=== PATIENT | male | born 1995 | race Caucasian/White ===

== ENCOUNTER 2016-11-30 21:47 | Emergency (ER) | payer MEDICAID ==
[~2016-11-30] VITALS: Ht 172.7 cm; Wt 77.3 kg
[2016-11-30 21:47] VITALS: TEMP 98.9
[~2016-11-30 21:47] MED LIST: ATIVAN 1MG T1 MG/TAB PO; LANTUS100 U/ML SC; NOVOLOG 100U100 U/M1 SQ
[2016-11-30 22:35] LABS: BASO # 0.1 (0.0-0.2); BASO % 0.6 % (0.0-2.0); EOS # 0.1 (0.0-0.7); EOS % 1.2 % (0-4.0); GRAN # 5.1 (1.4-6.5); GRAN % 60.5 % (42.2-75.2); HEMATOCRIT 46.6 % (36.0-47.0); HEMOGLOBIN 16.1 g/dl (12.5-16.1); LYMPH # 2.1 (1.2-3.4); LYMPH % 24.7 % (20.0-51.0); MEAN CELL VOLUME 84 fl (80.0-95.0); MEAN CORPUSCULAR HEMOGLOBIN 29 pg (26.0-32.0); MEAN CORPUSCULAR HGB CONC 35 g/dl (33.0-37.0); MEAN PLATELET VOLUME 10.5 fl (7.4-10.4); MONO % 12.3 % (1.7-9.3); PLATELET COUNT 212 K/mm3 (130-400); RED BLOOD COUNT 5.53 M/mm3 (4.20-5.60); REDCELL DISTRIBUTION WIDTH-CV 12.1 % (11.5-14.5); WHITE BLOOD COUNT 8.4 K/mm3 (4.8-10.8)
[2016-11-30 22:37] LABS: CALCIUM 9.3 mg/dL (8.4-10.2); CREATININE, serum 0.54 mg/dL (0.66-1.25); POTASSIUM 4.1 mmol/L (3.4-5.0)
[2016-11-30] MEDS ORDERED: PEN-VEE K500 MG PO (23:25)
[2016-11-30] MEDS ORDERED: NORCO 325 MG-51 TAB PO (23:25)
[2016-12-01 00:44] VITALS: BP 116/87; PULSE 93
== END 2016-12-01 00:49 | disposition home or self-care (01) ==
LOC: COL.ER 21:47
PROVIDERS: Emergency Medicine
DX: K02.9 Dental caries, unspecified (principal); E10.9 Type 1 diabetes mellitus without complications; F17.210 Nicotine dependence, cigarettes, uncomplicated
CPT/HCPCS: J1170; J1815; J7030; Q9967

== ENCOUNTER 2017-05-22 21:36 | Emergency (ER) | payer OTHER, MEDICAID ==
[~2017-05-22] VITALS: Ht 175.3 cm; Wt 72.7 kg
[~2017-05-22 21:36] MED LIST changes: +NORCO 325 MG-51 TAB PO; +PEN-VEE K500 MG PO; +SEROQUEL 200MG200 MG PO
[2017-05-22 21:44] VITALS: TEMP 98.6
[2017-05-22 22:30] LABS: COLLECTION METHOD CLEAN CATCH
[2017-05-22 22:45] LABS: TRICYCLIC ANTIDEPRESS URINE NEGATIVE
[2017-05-22 22:46] LABS: HEMATOCRIT 42.1 % (36.0-47.0); HEMOGLOBIN 15.1 g/dl (12.5-16.1); MEAN CELL VOLUME 82 fl (80.0-95.0); MEAN CORPUSCULAR HEMOGLOBIN 29 pg (26.0-32.0); MEAN CORPUSCULAR HGB CONC 36 g/dl (33.0-37.0); MEAN PLATELET VOLUME 10.9 fl (7.4-10.4); PLATELET COUNT 200 K/mm3 (130-400); RED BLOOD COUNT 5.14 M/mm3 (4.20-5.60); REDCELL DISTRIBUTION WIDTH-CV 11.6 % (11.5-14.5)
[2017-05-22 22:52] LABS: ACETONE,SERUM NEGATIVE
[2017-05-22 22:56] LABS: ALANINE AMINOTRANSFERASE 35 U/L (21-72); ALBUMIN 4.3 gm/dL (3.5-5.0); ALKALINE PHOSPHATASE 163 U/L (50-136); ANION GAP 12 mmol/L (7-16); AST,SGOT 13 U/L (15-37); BILIRUBIN,TOTAL 0.4 mg/dL (0.0-1.0); BLOOD UREA NITROGEN 12 mg/dL (9-20); CALCIUM 9.6 mg/dL (8.4-10.2); CARBON DIOXIDE 25 mmol/L (22-30); CHLORIDE 101 mmol/L (98-107); CREATININE, serum 0.52 mg/dL (0.66-1.25); GLUCOSE 361 mg/dL (74-106); POTASSIUM 3.9 mmol/L (3.4-5.0); SODIUM 137 mmol/L (137-145); TOTAL PROTEIN 7.3 gm/dL (6.4-8.2)
[2017-05-22 22:57] LABS: ACETAMINOPHEN < 10 ug/mL (10-30); ALCOHOL(ethanol),MEDICAL < 10 mg/dL; SALICYLATE < 1.0 mg/dL
[2017-05-22 22:59] LABS: BASOPHIL 3 % (0-2); EOSINOPHIL 4 % (0-4); LYMPHOCYTE 41 % (20.0-51.0); NEUTROPHILS 50 % (42.0-75.2); ROULEAUX 2+
[2017-05-22 23:00] LABS: POIKILOCYTOSIS 1+
[2017-05-22 23:05] LABS: PH 5 (5-8); URINE APPEARANCE Clear; URINE BILIRUBIN Negative (NEGATIVE); URINE BLOOD Negative (NEGATIVE); URINE COLOR Straw; URINE GLUCOSE 3+ (NEGATIVE); URINE KETONE Trace (NEGATIVE); URINE LEUKOCYTE ESTERASE Negative (NEGATIVE); URINE NITRATE Negative (NEGATIVE); URINE PROTEIN(semi-quant) Negative (NEGATIVE); URINE UROBILINOGEN Negative (NEGATIVE)
[2017-05-22 23:06] LABS: AMORPHOUS CRYSTAL Present /uL; SQUAMOUS EPITHELIAL 0-2 /hpf; URINE BACTERIA Rare /hpf
[2017-05-23 09:24] VITALS: BP 90/47; PULSE 66
== END 2017-05-23 10:35 ==
LOC: COL.ER 21:36
PROVIDERS: Emergency Medicine
DX: R45.851 Suicidal ideations (principal); E10.9 Type 1 diabetes mellitus without complications; F39 Unspecified mood [affective] disorder; F12.90 Cannabis use, unspecified, uncomplicated
CPT/HCPCS: J1815; J7030

== ENCOUNTER 2017-06-24 17:45 | Emergency (ER) | payer OTHER, MEDICAID ==
[~2017-06-24] VITALS: Ht 172.7 cm; Wt 81.8 kg
[~2017-06-24 17:45] MED LIST changes: +COGENTIN 1MG1 MG/TAB PO; +GEODON60 MG PO; +HALDOL 1MG T1 MG/TAB PO
[2017-06-24 18:28] LABS: BASO % 0.5 % (0.0-2.0); EOS # 0.2 (0.0-0.7); GRAN # 3.6 (1.4-6.5); HEMOGLOBIN 15.7 g/dl (12.5-16.1); LYMPH # 3.7 (1.2-3.4); LYMPH % 45.6 % (20.0-51.0); MEAN CELL VOLUME 84 fl (80.0-95.0); MEAN CORPUSCULAR HEMOGLOBIN 29 pg (26.0-32.0); MEAN CORPUSCULAR HGB CONC 35 g/dl (33.0-37.0); MEAN PLATELET VOLUME 10.1 fl (7.4-10.4); MONO # 0.5 (0.1-0.6); MONO % 5.9 % (1.7-9.3); PLATELET COUNT 218 K/mm3 (130-400); RED BLOOD COUNT 5.39 M/mm3 (4.20-5.60); REDCELL DISTRIBUTION WIDTH-CV 12.6 % (11.5-14.5)
[2017-06-24 18:35] LABS: ACETONE,SERUM NEGATIVE
[2017-06-24 18:37] LABS: ACETAMINOPHEN < 10 ug/mL (10-30); ALANINE AMINOTRANSFERASE 44 U/L (21-72); ALBUMIN 4.6 gm/dL (3.5-5.0); ALCOHOL(ethanol),MEDICAL < 10 mg/dL; ALKALINE PHOSPHATASE 83 U/L (50-136); ANION GAP 14 mmol/L (7-16); AST,SGOT 18 U/L (15-37); BILIRUBIN,TOTAL 0.6 mg/dL (0.0-1.0); BLOOD UREA NITROGEN 15 mg/dL (9-20); CALCIUM 9.6 mg/dL (8.4-10.2); CARBON DIOXIDE 26 mmol/L (22-30); CHLORIDE 102 mmol/L (98-107); CREATININE, serum 0.47 mg/dL (0.66-1.25); GLUCOSE 358 mg/dL (74-106); LIPASE 66 U/L (23-300); POTASSIUM 3.6 mmol/L (3.4-5.0); SALICYLATE < 1.0 mg/dL; SODIUM 142 mmol/L (137-145); TOTAL PROTEIN 7.7 gm/dL (6.4-8.2)
[2017-06-24 18:39] LABS: ARTERIAL BLD GAS O2 SATURATION 96.9 % (92-100); ARTERIAL BLD GAS TCO2 CT 27.4; ARTERIAL BLOOD GAS HCO3 26.1 meq/L (22-26); ARTERIAL BLOOD GAS PO2 91.3 mmHg (80-100)
[2017-06-24 19:31] LABS: COLLECTION METHOD CLEAN CATCH
[2017-06-24 19:42] LABS: MUCOUS Present /lpf; PH 6 (5-8); SQUAMOUS EPITHELIAL None Seen /hpf; URINE APPEARANCE Clear; URINE BACTERIA None Seen /hpf; URINE BILIRUBIN Negative (NEGATIVE); URINE BLOOD Negative (NEGATIVE); URINE COLOR Straw; URINE GLUCOSE 3+ (NEGATIVE); URINE KETONE Trace (NEGATIVE); URINE LEUKOCYTE ESTERASE Negative (NEGATIVE); URINE NITRATE Negative (NEGATIVE); URINE PROTEIN(semi-quant) Negative (NEGATIVE); URINE RBC None Seen /hpf; URINE UROBILINOGEN Negative (NEGATIVE)
[2017-06-24 19:52] LABS: TRICYCLIC ANTIDEPRESS URINE NEGATIVE
[2017-06-24] MEDS ORDERED: NEURONTIN100 MG/CAP PO (21:09)
[2017-06-24] MEDS ORDERED: TRILEPTAL 300M300 MG PO (21:09)
[2017-06-24] MEDS ORDERED: GEODON80 MG PO (21:10)
[2017-06-24] MEDS ORDERED: REMERON30 MG PO (21:11)
[2017-06-24] MEDS ORDERED: NOVOLOG 100U100 U/M1 SQ (21:12)
[2017-06-24] MEDS ORDERED: LANTUS100 U/ML SQ (21:12)
[2017-06-25 04:22] VITALS: TEMP 98.8
[2017-06-25 11:18] VITALS: BP 123/86; PULSE 105
== END 2017-06-25 11:21 | disposition home or self-care (01) ==
LOC: COL.ER 17:45
PROVIDERS: Emergency Medicine
DX: T42.1X1A Poisoning by iminostilbenes, accidental (unintentional), initial encounter (principal); E11.9 Type 2 diabetes mellitus without complications; R41.82 Altered mental status, unspecified; R11.10 Vomiting, unspecified; F20.9 Schizophrenia, unspecified; Z79.4 Long term (current) use of insulin
CPT/HCPCS: J1815; J2405; J2765; J7030; J7040

== ENCOUNTER 2017-06-25 16:01 | Emergency (ER) | payer OTHER, MEDICAID ==
[~2017-06-25] VITALS: Ht 172.7 cm; Wt 77.3 kg
[~2017-06-25 16:01] MED LIST changes: +GEODON80 MG PO; +LANTUS100 U/ML SQ; +NEURONTIN100 MG/CAP PO; +REMERON30 MG PO; +TRILEPTAL 300M300 MG PO
[2017-06-25 16:28] VITALS: TEMP 97.7
[2017-06-25 18:03] LABS: BASO % 0.5 % (0.0-2.0); EOS # 0.2 (0.0-0.7); EOS % 1.9 % (0-4.0); GRAN # 4.7 (1.4-6.5); GRAN % 53.1 % (42.2-75.2); HEMATOCRIT 42.5 % (36.0-47.0); HEMOGLOBIN 14.7 g/dl (12.5-16.1); LYMPH # 3.4 (1.2-3.4); MEAN CELL VOLUME 84 fl (80.0-95.0); MEAN CORPUSCULAR HEMOGLOBIN 29 pg (26.0-32.0); MEAN CORPUSCULAR HGB CONC 35 g/dl (33.0-37.0); MEAN PLATELET VOLUME 10.3 fl (7.4-10.4); MONO # 0.5 (0.1-0.6); PLATELET COUNT 257 K/mm3 (130-400); RED BLOOD COUNT 5.05 M/mm3 (4.20-5.60); REDCELL DISTRIBUTION WIDTH-CV 12.4 % (11.5-14.5)
[2017-06-25 18:21] LABS: ALANINE AMINOTRANSFERASE 43 U/L (21-72); ALBUMIN 4.5 gm/dL (3.5-5.0); ALKALINE PHOSPHATASE 71 U/L (50-136); ANION GAP 17 mmol/L (7-16); AST,SGOT 19 U/L (15-37); BILIRUBIN,TOTAL 0.4 mg/dL (0.0-1.0); BLOOD UREA NITROGEN 17 mg/dL (9-20); CALCIUM 9.1 mg/dL (8.4-10.2); CARBON DIOXIDE 22 mmol/L (22-30); CHLORIDE 101 mmol/L (98-107); CREATININE, serum 0.74 mg/dL (0.66-1.25); GLUCOSE 359 mg/dL (74-106); LIPASE 85 U/L (23-300); POTASSIUM 3.8 mmol/L (3.4-5.0); SODIUM 140 mmol/L (137-145); TOTAL PROTEIN 7.5 gm/dL (6.4-8.2)
[2017-06-25 18:23] LABS: ACETAMINOPHEN < 10 ug/mL (10-30); ALCOHOL(ethanol),MEDICAL < 10 mg/dL; SALICYLATE < 1.0 mg/dL
[2017-06-25 19:16] LABS: COLLECTION METHOD CLEAN CATCH
[2017-06-25 19:22] LABS: PH 6 (5-8); SQUAMOUS EPITHELIAL None Seen /hpf; URINE APPEARANCE Clear; URINE BACTERIA None Seen /hpf; URINE BILIRUBIN Negative (NEGATIVE); URINE BLOOD Negative (NEGATIVE); URINE COLOR Straw; URINE GLUCOSE 3+ (NEGATIVE); URINE KETONE Trace (NEGATIVE); URINE LEUKOCYTE ESTERASE Negative (NEGATIVE); URINE NITRATE Negative (NEGATIVE); URINE PROTEIN(semi-quant) Negative (NEGATIVE); URINE RBC None Seen /hpf; URINE UROBILINOGEN Negative (NEGATIVE)
[2017-06-25 19:32] LABS: TRICYCLIC ANTIDEPRESS URINE NEGATIVE
[2017-06-26 11:42] VITALS: BP 114/69; PULSE 96
== END 2017-06-26 11:45 ==
LOC: COL.ER 16:01
PROVIDERS: Emergency Medicine
DX: F32.9 Major depressive disorder, single episode, unspecified (principal); R45.851 Suicidal ideations; E11.9 Type 2 diabetes mellitus without complications; Z79.4 Long term (current) use of insulin
CPT/HCPCS: J1630; J1815; J2060; J7030

== ENCOUNTER 2017-07-11 14:27 | Emergency (ER) | payer OTHER ==
[~2017-07-11] VITALS: Ht 172.7 cm; Wt 77.3 kg
[2017-07-11 14:30] VITALS: TEMP 98.4
[2017-07-11 16:40] LABS: BASO # 0.1 (0.0-0.2); BASO % 0.5 % (0.0-2.0); EOS # 0.4 (0.0-0.7); EOS % 3.6 % (0-4.0); GRAN # 6.3 (1.4-6.5); HEMATOCRIT 42.1 % (36.0-47.0); LYMPH # 3.7 (1.2-3.4); LYMPH % 32.1 % (20.0-51.0); MEAN CELL VOLUME 83 fl (80.0-95.0); MEAN CORPUSCULAR HEMOGLOBIN 29 pg (26.0-32.0); MEAN CORPUSCULAR HGB CONC 36 g/dl (33.0-37.0); MONO % 8.3 % (1.7-9.3); PLATELET COUNT 220 K/mm3 (130-400); REDCELL DISTRIBUTION WIDTH-CV 12.2 % (11.5-14.5)
[2017-07-11 16:46] LABS: ACETAMINOPHEN < 10 ug/mL (10-30); ALANINE AMINOTRANSFERASE 24 U/L (21-72); ALBUMIN 4.2 gm/dL (3.5-5.0); ALCOHOL(ethanol),MEDICAL < 10 mg/dL; ALKALINE PHOSPHATASE 69 U/L (50-136); ANION GAP 20 mmol/L (7-16); AST,SGOT 19 U/L (15-37); BILIRUBIN,TOTAL 1.1 mg/dL (0.0-1.0); BLOOD UREA NITROGEN 16 mg/dL (9-20); CALCIUM 9.3 mg/dL (8.4-10.2); CARBON DIOXIDE 17 mmol/L (22-30); CHLORIDE 102 mmol/L (98-107); CREATININE, serum 0.57 mg/dL (0.66-1.25); GLUCOSE 261 mg/dL (74-106); POTASSIUM 3.5 mmol/L (3.4-5.0); SALICYLATE < 1.0 mg/dL; SODIUM 139 mmol/L (137-145); TOTAL PROTEIN 8.5 gm/dL (6.4-8.2)
[2017-07-11 18:08] VITALS: BP 108/78; PULSE 103
[2017-07-11 18:26] LABS: COLLECTION METHOD CLEAN CATCH
[2017-07-11 18:39] LABS: MUCOUS Present /lpf; PH 6 (5-8); SQUAMOUS EPITHELIAL None Seen /hpf; URINE APPEARANCE Clear; URINE BACTERIA Rare /hpf; URINE BILIRUBIN Negative (NEGATIVE); URINE BLOOD Negative (NEGATIVE); URINE COLOR Yellow; URINE GLUCOSE 3+ (NEGATIVE); URINE KETONE 2+ (NEGATIVE); URINE LEUKOCYTE ESTERASE Negative (NEGATIVE); URINE NITRATE Negative (NEGATIVE); URINE PROTEIN(semi-quant) 1+ (NEGATIVE); URINE RBC 0-2 /hpf
[2017-07-11 19:14] LABS: TRICYCLIC ANTIDEPRESS URINE NEGATIVE
== END 2017-07-11 21:40 | disposition home or self-care (01) ==
LOC: COL.ER 14:27
PROVIDERS: Emergency Medicine
DX: F15.23 Other stimulant dependence with withdrawal (principal); F19.10 Other psychoactive substance abuse, uncomplicated; E86.0 Dehydration; F32.9 Major depressive disorder, single episode, unspecified; Z79.4 Long term (current) use of insulin
CPT/HCPCS: J2060; J2405; J7030

== ENCOUNTER 2017-07-11 21:56 | Emergency (ER) | payer OTHER ==
[~2017-07-11] VITALS: Ht 172.7 cm; Wt 77.3 kg
[2017-07-11 22:11] VITALS: BP 117/82; PULSE 107; TEMP 98.7
== END 2017-07-11 22:16 | disposition home or self-care (01) ==
LOC: COL.ER 21:56
DX: Z01.89 Encounter for other specified special examinations (principal)

== ENCOUNTER 2017-07-25 02:47 | Emergency (ER) | payer OTHER ==
[~2017-07-25] VITALS: Ht 172.7 cm; Wt 100.0 kg
[2017-07-25 02:54] VITALS: TEMP 97.4
[2017-07-25 03:14] LABS: BASO # 0.1 (0.0-0.2); BASO % 0.8 % (0.0-2.0); EOS # 0.2 (0.0-0.7); EOS % 1.1 % (0-4.0); GRAN # 10.5 (1.4-6.5); GRAN % 73.4 % (42.2-75.2); HEMATOCRIT 49.1 % (36.0-47.0); HEMOGLOBIN 17.4 g/dl (12.5-16.1); LYMPH # 2.7 (1.2-3.4); LYMPH % 18.7 % (20.0-51.0); MEAN CELL VOLUME 81 fl (80.0-95.0); MEAN CORPUSCULAR HEMOGLOBIN 29 pg (26.0-32.0); MEAN CORPUSCULAR HGB CONC 35 g/dl (33.0-37.0); MEAN PLATELET VOLUME 9.9 fl (7.4-10.4); MONO # 0.8 (0.1-0.6); MONO % 5.7 % (1.7-9.3); PLATELET COUNT 240 K/mm3 (130-400); RED BLOOD COUNT 6.06 M/mm3 (4.20-5.60); REDCELL DISTRIBUTION WIDTH-CV 11.9 % (11.5-14.5)
[2017-07-25 03:24] LABS: ACETAMINOPHEN < 10 ug/mL (10-30); ALANINE AMINOTRANSFERASE 45 U/L (21-72); ALBUMIN 4.9 gm/dL (3.5-5.0); ALCOHOL(ethanol),MEDICAL < 10 mg/dL; ALKALINE PHOSPHATASE 90 U/L (50-136); ANION GAP 16 mmol/L (7-16); AST,SGOT 29 U/L (15-37); BILIRUBIN,TOTAL 0.4 mg/dL (0.0-1.0); BLOOD UREA NITROGEN 13 mg/dL (9-20); CARBON DIOXIDE 25 mmol/L (22-30); CHLORIDE 102 mmol/L (98-107); CREATININE, serum 0.59 mg/dL (0.66-1.25); GLUCOSE 192 mg/dL (74-106); POTASSIUM 4.1 mmol/L (3.4-5.0); SALICYLATE < 1.0 mg/dL; SODIUM 143 mmol/L (137-145); TOTAL PROTEIN 9.8 gm/dL (6.4-8.2)
[2017-07-25 06:41] LABS: COLLECTION METHOD CLEAN CATCH
[2017-07-25 06:47] LABS: PH 7 (5-8); SQUAMOUS EPITHELIAL 0-2 /hpf; URINE APPEARANCE Clear; URINE BACTERIA None Seen /hpf; URINE BILIRUBIN Negative (NEGATIVE); URINE BLOOD Negative (NEGATIVE); URINE COLOR Yellow; URINE GLUCOSE 2+ (NEGATIVE); URINE KETONE Negative (NEGATIVE); URINE LEUKOCYTE ESTERASE Negative (NEGATIVE); URINE NITRATE Negative (NEGATIVE); URINE PROTEIN(semi-quant) Negative (NEGATIVE); URINE RBC None Seen /hpf; URINE UROBILINOGEN Negative (NEGATIVE)
[2017-07-25 06:58] LABS: TRICYCLIC ANTIDEPRESS URINE NEGATIVE
[2017-07-25 10:23] VITALS: BP 117/69
[2017-07-25 11:41] VITALS: PULSE 78
== END 2017-07-25 11:42 | disposition home or self-care (01) ==
LOC: COL.ER 02:47
PROVIDERS: Emergency Medicine
DX: R45.851 Suicidal ideations (principal); R44.3 Hallucinations, unspecified; R45.1 Restlessness and agitation; T40.995A Adverse effect of other psychodysleptics [hallucinogens], initial encounter; E10.9 Type 1 diabetes mellitus without complications; F20.9 Schizophrenia, unspecified; F32.9 Major depressive disorder, single episode, unspecified; F12.90 Cannabis use, unspecified, uncomplicated; F17.210 Nicotine dependence, cigarettes, uncomplicated

== ENCOUNTER 2017-08-09 14:05 | Emergency (ER) | payer OTHER ==
[~2017-08-09] VITALS: Ht 172.7 cm; Wt 77.3 kg
[2017-08-09 14:51] LABS: BASO % 0.4 % (0.0-2.0); EOS # 0.1 (0.0-0.7); EOS % 1.9 % (0-4.0); GRAN # 4.2 (1.4-6.5); GRAN % 55.1 % (42.2-75.2); HEMATOCRIT 49.8 % (36.0-47.0); HEMOGLOBIN 17.6 g/dl (12.5-16.1); LYMPH # 2.6 (1.2-3.4); LYMPH % 34.3 % (20.0-51.0); MEAN CELL VOLUME 82 fl (80.0-95.0); MEAN CORPUSCULAR HEMOGLOBIN 29 pg (26.0-32.0); MEAN CORPUSCULAR HGB CONC 35 g/dl (33.0-37.0); MEAN PLATELET VOLUME 9.9 fl (7.4-10.4); MONO # 0.6 (0.1-0.6); PLATELET COUNT 267 K/mm3 (130-400); RED BLOOD COUNT 6.06 M/mm3 (4.20-5.60); REDCELL DISTRIBUTION WIDTH-CV 12.2 % (11.5-14.5)
[2017-08-09 15:02] LABS: ACETAMINOPHEN < 10 ug/mL (10-30); ALANINE AMINOTRANSFERASE 44 U/L (21-72); ALBUMIN 4.8 gm/dL (3.5-5.0); ALCOHOL(ethanol),MEDICAL < 10 mg/dL; ALKALINE PHOSPHATASE 73 U/L (50-136); ANION GAP 19 mmol/L (7-16); AST,SGOT 20 U/L (15-37); BILIRUBIN,TOTAL 1.2 mg/dL (0.0-1.0); BLOOD UREA NITROGEN 15 mg/dL (9-20); CALCIUM 10.4 mg/dL (8.4-10.2); CARBON DIOXIDE 23 mmol/L (22-30); CHLORIDE 99 mmol/L (98-107); CREATININE, serum 0.67 mg/dL (0.66-1.25); GLUCOSE 375 mg/dL (74-106); POTASSIUM 3.9 mmol/L (3.4-5.0); SALICYLATE < 1.0 mg/dL; SODIUM 141 mmol/L (137-145)
[2017-08-09 15:07] VITALS: BP 125/74; PULSE 106; TEMP 99.3
[2017-08-09 15:42] LABS: COLLECTION METHOD CLEAN CATCH
[2017-08-09 15:48] LABS: MUCOUS Present /lpf; PH 6 (5-8); SQUAMOUS EPITHELIAL None Seen /hpf; URINE APPEARANCE Clear; URINE BACTERIA Rare /hpf; URINE BILIRUBIN Negative (NEGATIVE); URINE BLOOD Negative (NEGATIVE); URINE COLOR Yellow; URINE GLUCOSE 3+ (NEGATIVE); URINE KETONE Trace (NEGATIVE); URINE LEUKOCYTE ESTERASE Negative (NEGATIVE); URINE NITRATE Negative (NEGATIVE); URINE PROTEIN(semi-quant) 1+ (NEGATIVE); URINE RBC 0-2 /hpf
[2017-08-09 15:59] LABS: TRICYCLIC ANTIDEPRESS URINE NEGATIVE
== END 2017-08-09 16:00 | disposition home or self-care (01) ==
LOC: COL.ER 14:05
PROVIDERS: Emergency Medicine
DX: F15.90 Other stimulant use, unspecified, uncomplicated (principal); R55 Syncope and collapse; F17.210 Nicotine dependence, cigarettes, uncomplicated; Z79.4 Long term (current) use of insulin

== ENCOUNTER 2017-08-17 01:35 | Emergency (ER) | payer OTHER ==
[~2017-08-17] VITALS: Ht 172.7 cm; Wt 77.3 kg
[2017-08-17 01:44] VITALS: BP 129/76; TEMP 97.9
[2017-08-17] MEDS ORDERED: BACTRIM DS 8001 TAB PO (01:55)
[2017-08-17 02:31] VITALS: PULSE 86
== END 2017-08-17 02:33 | disposition home or self-care (01) ==
LOC: COL.ER 01:35
DX: L02.413 Cutaneous abscess of right upper limb (principal); Z79.4 Long term (current) use of insulin

== ENCOUNTER 2017-11-14 17:45 | Emergency (ER) | payer OTHER, MEDICAID ==
[~2017-11-14] VITALS: Ht 175.3 cm; Wt 65.9 kg
[~2017-11-14 17:45] MED LIST changes: +BACTRIM DS 8001 TAB PO
[2017-11-14 17:52] VITALS: TEMP 98.5
[2017-11-14 18:24] LABS: COLLECTION METHOD CLEAN CATCH
[2017-11-14 18:31] LABS: BASO % 0.5 % (0.0-2.0); EOS # 0.1 (0.0-0.7); EOS % 0.8 % (0-4.0); GRAN # 5.6 (1.4-6.5); GRAN % 64.4 % (42.2-75.2); HEMATOCRIT 44.1 % (36.0-47.0); HEMOGLOBIN 15.5 g/dl (12.5-16.1); LYMPH # 2.4 (1.2-3.4); LYMPH % 27.8 % (20.0-51.0); MEAN CELL VOLUME 81 fl (80.0-95.0); MEAN CORPUSCULAR HEMOGLOBIN 28 pg (26.0-32.0); MEAN CORPUSCULAR HGB CONC 35 g/dl (33.0-37.0); MEAN PLATELET VOLUME 10.6 fl (7.4-10.4); MONO # 0.6 (0.1-0.6); MONO % 6.3 % (1.7-9.3); PLATELET COUNT 311 K/mm3 (130-400); RED BLOOD COUNT 5.48 M/mm3 (4.20-5.60)
[2017-11-14 18:35] LABS: MUCOUS Present /lpf; PH 5 (5-8); SQUAMOUS EPITHELIAL 0-2 /hpf; URINE APPEARANCE Clear; URINE BACTERIA None Seen /hpf; URINE BILIRUBIN Negative (NEGATIVE); URINE BLOOD Negative (NEGATIVE); URINE COLOR Yellow; URINE GLUCOSE 3+ (NEGATIVE); URINE KETONE 2+ (NEGATIVE); URINE LEUKOCYTE ESTERASE Negative (NEGATIVE); URINE NITRATE Negative (NEGATIVE); URINE PROTEIN(semi-quant) Negative (NEGATIVE); URINE RBC 0-2 /hpf
[2017-11-14 18:43] LABS: TRICYCLIC ANTIDEPRESS URINE NEGATIVE
[2017-11-14 18:45] LABS: ALANINE AMINOTRANSFERASE 28 U/L (21-72); ALBUMIN 4.8 gm/dL (3.5-5.0); ALKALINE PHOSPHATASE 85 U/L (50-136); ANION GAP 18 mmol/L (7-16); AST,SGOT 15 U/L (15-37); BILIRUBIN,TOTAL 0.9 mg/dL (0.0-1.0); BLOOD UREA NITROGEN 19 mg/dL (9-20); C-REACTIVE PROTEIN 2.1 mg/dL (0.0-0.9); CALCIUM 10.3 mg/dL (8.4-10.2); CARBON DIOXIDE 23 mmol/L (22-30); CHLORIDE 95 mmol/L (98-107); POTASSIUM 4.1 mmol/L (3.4-5.0); SODIUM 135 mmol/L (137-145); TOTAL PROTEIN 8.4 gm/dL (6.4-8.2)
[2017-11-14 18:49] LABS: ACETAMINOPHEN < 10 ug/mL (10-30); ALCOHOL(ethanol),MEDICAL < 10 mg/dL; SALICYLATE < 1.0 mg/dL
[2017-11-14 18:50] LABS: GLUCOSE 461 mg/dL (74-106)
[2017-11-14 19:03] LABS: ACETONE,SERUM NEGATIVE
[2017-11-14 19:09] VITALS: BP 111/71; PULSE 102
== END 2017-11-14 19:20 | disposition home or self-care (01) ==
LOC: COL.ER 17:45
PROVIDERS: Emergency Medicine
DX: E10.65 Type 1 diabetes mellitus with hyperglycemia (principal); F32.9 Major depressive disorder, single episode, unspecified; F19.11 Other psychoactive substance abuse, in remission
CPT/HCPCS: J1815; J7030

== ENCOUNTER 2017-11-17 15:53 | Emergency (ER) | payer OTHER, MEDICAID ==
[~2017-11-17] VITALS: Ht 170.2 cm; Wt 65.9 kg
[2017-11-17 15:56] VITALS: TEMP 99.5
[2017-11-17 17:05] LABS: COLLECTION METHOD CLEAN CATCH
[2017-11-17 17:07] LABS: BASO # 0.1 (0.0-0.2); BASO % 0.7 % (0.0-2.0); EOS # 0.1 (0.0-0.7); EOS % 1.5 % (0-4.0); GRAN # 5.7 (1.4-6.5); GRAN % 60.3 % (42.2-75.2); HEMOGLOBIN 13.7 g/dl (12.5-16.1); LYMPH # 2.8 (1.2-3.4); LYMPH % 29.6 % (20.0-51.0); MEAN CELL VOLUME 80 fl (80.0-95.0); MEAN CORPUSCULAR HEMOGLOBIN 29 pg (26.0-32.0); MEAN CORPUSCULAR HGB CONC 36 g/dl (33.0-37.0); MONO # 0.7 (0.1-0.6); MONO % 7.6 % (1.7-9.3); PLATELET COUNT 312 K/mm3 (130-400); RED BLOOD COUNT 4.75 M/mm3 (4.20-5.60)
[2017-11-17 17:13] LABS: ALANINE AMINOTRANSFERASE 21 U/L (21-72); ALBUMIN 4.2 gm/dL (3.5-5.0); ALKALINE PHOSPHATASE 78 U/L (50-136); ANION GAP 14 mmol/L (7-16); AST,SGOT 18 U/L (15-37); BILIRUBIN,TOTAL 1.4 mg/dL (0.0-1.0); BLOOD UREA NITROGEN 10 mg/dL (9-20); CALCIUM 9.5 mg/dL (8.4-10.2); CARBON DIOXIDE 27 mmol/L (22-30); CHLORIDE 97 mmol/L (98-107); GLUCOSE 371 mg/dL (74-106); POTASSIUM 3.6 mmol/L (3.4-5.0); SODIUM 138 mmol/L (137-145); TOTAL PROTEIN 7.6 gm/dL (6.4-8.2)
[2017-11-17 17:14] LABS: ALCOHOL(ethanol),MEDICAL < 10 mg/dL; MUCOUS Present /lpf; PH 5 (5-8); SQUAMOUS EPITHELIAL 0-2 /hpf; URINE APPEARANCE Clear; URINE BACTERIA None Seen /hpf; URINE BILIRUBIN Negative (NEGATIVE); URINE BLOOD Negative (NEGATIVE); URINE COLOR Yellow; URINE GLUCOSE 3+ (NEGATIVE); URINE KETONE Trace (NEGATIVE); URINE LEUKOCYTE ESTERASE Negative (NEGATIVE); URINE NITRATE Negative (NEGATIVE); URINE PROTEIN(semi-quant) Negative (NEGATIVE); URINE RBC 0-2 /hpf
[2017-11-17 17:25] LABS: TRICYCLIC ANTIDEPRESS URINE NEGATIVE
[2017-11-17 19:30] VITALS: BP 120/87; PULSE 79
== END 2017-11-17 19:30 | disposition home or self-care (01) ==
LOC: COL.ER 15:53
PROVIDERS: Emergency Medicine
DX: E11.65 Type 2 diabetes mellitus with hyperglycemia (principal); F19.10 Other psychoactive substance abuse, uncomplicated; F17.210 Nicotine dependence, cigarettes, uncomplicated; Z79.84 Long term (current) use of oral hypoglycemic drugs
CPT/HCPCS: J1815; J7030

== ENCOUNTER 2017-11-18 13:46 | Emergency (ER) | payer OTHER, MEDICAID ==
[~2017-11-18] VITALS: Ht 172.7 cm; Wt 65.9 kg
[2017-11-18 14:15] LABS: COLLECTION METHOD CLEAN CATCH
[2017-11-18 14:19] LABS: BASO # 0.1 (0.0-0.2); BASO % 0.8 % (0.0-2.0); EOS # 0.2 (0.0-0.7); EOS % 3.7 % (0-4.0); GRAN # 3.1 (1.4-6.5); GRAN % 51.1 % (42.2-75.2); HEMATOCRIT 38.6 % (36.0-47.0); HEMOGLOBIN 13.6 g/dl (12.5-16.1); LYMPH # 2.2 (1.2-3.4); LYMPH % 36.9 % (20.0-51.0); MEAN CELL VOLUME 80 fl (80.0-95.0); MEAN CORPUSCULAR HEMOGLOBIN 28 pg (26.0-32.0); MEAN CORPUSCULAR HGB CONC 35 g/dl (33.0-37.0); MEAN PLATELET VOLUME 9.7 fl (7.4-10.4); MONO # 0.4 (0.1-0.6); PLATELET COUNT 288 K/mm3 (130-400)
[2017-11-18 14:31] LABS: TRICYCLIC ANTIDEPRESS URINE NEGATIVE
[2017-11-18 14:38] LABS: MUCOUS Present /lpf; PH 5 (5-8); SQUAMOUS EPITHELIAL 0-2 /hpf; URINE APPEARANCE Clear; URINE BACTERIA None Seen /hpf; URINE BILIRUBIN Negative (NEGATIVE); URINE BLOOD Negative (NEGATIVE); URINE COLOR Yellow; URINE GLUCOSE 3+ (NEGATIVE); URINE KETONE 1+ (NEGATIVE); URINE LEUKOCYTE ESTERASE Negative (NEGATIVE); URINE NITRATE Negative (NEGATIVE); URINE PROTEIN(semi-quant) Negative (NEGATIVE); URINE RBC 0-2 /hpf
[2017-11-18 14:39] LABS: ALANINE AMINOTRANSFERASE 20 U/L (21-72); ALBUMIN 3.9 gm/dL (3.5-5.0); ALKALINE PHOSPHATASE 68 U/L (50-136); ANION GAP 12 mmol/L (7-16); AST,SGOT 15 U/L (15-37); BLOOD UREA NITROGEN 15 mg/dL (9-20); CALCIUM 9.3 mg/dL (8.4-10.2); CARBON DIOXIDE 25 mmol/L (22-30); CHLORIDE 102 mmol/L (98-107); CREATININE, serum 0.55 mg/dL (0.66-1.25); GLUCOSE 305 mg/dL (74-106); POTASSIUM 3.4 mmol/L (3.4-5.0); SODIUM 139 mmol/L (137-145); TOTAL PROTEIN 7.2 gm/dL (6.4-8.2)
[2017-11-18 14:44] LABS: ACETAMINOPHEN < 10 ug/mL (10-30); ALCOHOL(ethanol),MEDICAL < 10 mg/dL; SALICYLATE < 1.0 mg/dL
[2017-11-18 15:08] LABS: TSH w REFLEX 0.153 uIU/mL (0.465-4.680)
[2017-11-19 14:41] LABS: TRICYCLIC ANTIDEPRESS URINE NEGATIVE
[2017-11-20 06:18] LABS: TRICYCLIC ANTIDEPRESS URINE NEGATIVE
[2017-11-20 15:11] VITALS: BP 117/58; PULSE 70; TEMP 97.5
== END 2017-11-20 15:14 ==
LOC: COL.ER 13:46
PROVIDERS: Emergency Medicine
DX: R45.851 Suicidal ideations (principal); E11.9 Type 2 diabetes mellitus without complications; Z79.4 Long term (current) use of insulin
CPT/HCPCS: J1815; J7030

== ENCOUNTER 2017-11-28 09:28 | Emergency (ER) | payer OTHER, MEDICAID ==
[~2017-11-28] VITALS: Ht 172.7 cm; Wt 77.3 kg
[2017-11-28 09:34] VITALS: TEMP 97.5
[2017-11-28] MEDS ORDERED: CATAPRES 0.1MG0.1 MG PO (09:50)
[2017-11-28] MEDS ORDERED: NEURONTIN300 MG/CAP PO (09:50)
[2017-11-28] MEDS ORDERED: LIBRIUM 25M25 MG/CAP PO (09:51)
[2017-11-28 10:08] VITALS: BP 127/84; PULSE 104
== END 2017-11-28 10:09 | disposition home or self-care (01) ==
LOC: COL.ER 09:28
DX: F11.20 Opioid dependence, uncomplicated (principal); F14.20 Cocaine dependence, uncomplicated; F10.20 Alcohol dependence, uncomplicated; E10.9 Type 1 diabetes mellitus without complications; F17.210 Nicotine dependence, cigarettes, uncomplicated

== ENCOUNTER 2017-12-26 21:50 | Emergency (ER) | payer OTHER, MEDICAID ==
[~2017-12-26] VITALS: Ht 172.7 cm; Wt 80.5 kg
[~2017-12-26 21:50] MED LIST changes: +CATAPRES 0.1MG0.1 MG PO; +LIBRIUM 25M25 MG/CAP PO; +NEURONTIN300 MG/CAP PO
[2017-12-26 22:01] VITALS: TEMP 98.1
[2017-12-26 22:40] LABS: COLLECTION METHOD CLEAN CATCH
[2017-12-26 22:45] LABS: BASO % 0.4 % (0.0-2.0); EOS # 0.2 (0.0-0.7); EOS % 2.8 % (0-4.0); GRAN # 3.7 (1.4-6.5); GRAN % 47.6 % (42.2-75.2); HEMATOCRIT 38.3 % (42.0-52.0); HEMOGLOBIN 13.3 g/dl (13.5-18.0); LYMPH # 3.3 (1.2-3.4); LYMPH % 42.5 % (20.0-51.0); MEAN CELL VOLUME 82 fl (80.0-100.0); MEAN CORPUSCULAR HEMOGLOBIN 29 pg (27.0-31.0); MEAN CORPUSCULAR HGB CONC 35 g/dl (33.0-37.0); MEAN PLATELET VOLUME 10.4 fl (7.4-10.4); MONO # 0.5 (0.1-0.6); MONO % 6.3 % (1.7-9.3); PLATELET COUNT 206 K/mm3 (130-400); RED BLOOD COUNT 4.65 M/mm3 (4.20-5.60); REDCELL DISTRIBUTION WIDTH-CV 12.2 % (11.5-14.5)
[2017-12-26 22:49] LABS: MUCOUS Present /lpf; PH 5 (5-8); SQUAMOUS EPITHELIAL None Seen /hpf; URINE APPEARANCE Clear; URINE BACTERIA None Seen /hpf; URINE BILIRUBIN Negative (NEGATIVE); URINE BLOOD Negative (NEGATIVE); URINE COLOR Yellow; URINE GLUCOSE 3+ (NEGATIVE); URINE KETONE Trace (NEGATIVE); URINE LEUKOCYTE ESTERASE Negative (NEGATIVE); URINE NITRATE Negative (NEGATIVE); URINE PROTEIN(semi-quant) 1+ (NEGATIVE); URINE RBC 0-2 /hpf; URINE UROBILINOGEN >=4.0 mg/dL (NEGATIVE)
[2017-12-26 22:56] LABS: ALANINE AMINOTRANSFERASE 20 U/L (21-72); ALBUMIN 3.7 gm/dL (3.5-5.0); ALKALINE PHOSPHATASE 90 U/L (50-136); ANION GAP 12 mmol/L (7-16); AST,SGOT 11 U/L (15-37); BILIRUBIN,TOTAL 0.2 mg/dL (0.0-1.0); BLOOD UREA NITROGEN 14 mg/dL (9-20); CALCIUM 8.7 mg/dL (8.4-10.2); CARBON DIOXIDE 26 mmol/L (22-30); CHLORIDE 103 mmol/L (98-107); CREATININE, serum 0.59 mg/dL (0.66-1.25); GLUCOSE 267 mg/dL (74-106); POTASSIUM 3.2 mmol/L (3.4-5.0); SODIUM 142 mmol/L (137-145); TOTAL PROTEIN 6.9 gm/dL (6.4-8.2)
[2017-12-26 22:57] LABS: ACETAMINOPHEN < 10 ug/mL (10-30); ALCOHOL(ethanol),MEDICAL < 10 mg/dL; SALICYLATE < 1.0 mg/dL
[2017-12-26] MEDS ORDERED: NOVOLOG FLEX100 U/ML SQ (23:01)
[2017-12-26] MEDS ORDERED: LANTUS SOLOS100 U/ML SQ (23:01)
[2017-12-26 23:03] LABS: TRICYCLIC ANTIDEPRESS URINE NEGATIVE
[2017-12-26] MEDS ORDERED: FREESTYLE PREC1 EAC5 MC (23:40)
[2017-12-27] VITALS: BP 120/86; PULSE 93
== END 2017-12-27 | disposition home or self-care (01) ==
LOC: COL.ER 21:50
PROVIDERS: Emergency Medicine
DX: E10.65 Type 1 diabetes mellitus with hyperglycemia (principal); I10 Essential (primary) hypertension; Z79.4 Long term (current) use of insulin
CPT/HCPCS: J7030

== ENCOUNTER 2017-12-27 01:25 | Emergency (ER) | payer MEDICAID ==
[~2017-12-27] VITALS: Ht 172.7 cm; Wt 80.0 kg
[~2017-12-27 01:25] MED LIST changes: +FREESTYLE PREC1 EAC5 MC; +LANTUS SOLOS100 U/ML SQ; +NOVOLOG FLEX100 U/ML SQ
[2017-12-28 12:53] LABS: TRICYCLIC ANTIDEPRESS URINE NEGATIVE
[2017-12-29 14:18] VITALS: BP 140/76; PULSE 88; TEMP 97
== END 2017-12-29 14:23 ==
LOC: COL.ER 01:25
PROVIDERS: Family Medicine
DX: R45.851 Suicidal ideations (principal); F32.9 Major depressive disorder, single episode, unspecified; E10.65 Type 1 diabetes mellitus with hyperglycemia; F15.10 Other stimulant abuse, uncomplicated
CPT/HCPCS: J1815

== ENCOUNTER 2018-01-14 22:24 | Emergency (ER) | payer MEDICAID ==
[~2018-01-14] VITALS: Ht 175.3 cm; Wt 77.3 kg
[2018-01-14 22:32] VITALS: TEMP 98.9
[2018-01-14 22:53] LABS: COLLECTION METHOD CLEAN CATCH
[2018-01-14 22:55] LABS: BASO % 0.3 % (0.0-2.0); EOS # 0.1 (0.0-0.7); GRAN # 7.3 (1.4-6.5); GRAN % 64.2 % (42.2-75.2); HEMATOCRIT 41.9 % (42.0-52.0); HEMOGLOBIN 14.9 g/dl (13.5-18.0); LYMPH # 3.1 (1.2-3.4); LYMPH % 27.2 % (20.0-51.0); MEAN CELL VOLUME 81 fl (80.0-100.0); MEAN CORPUSCULAR HEMOGLOBIN 29 pg (27.0-31.0); MEAN CORPUSCULAR HGB CONC 36 g/dl (33.0-37.0); MEAN PLATELET VOLUME 9.6 fl (7.4-10.4); MONO # 0.8 (0.1-0.6); MONO % 6.8 % (1.7-9.3); PLATELET COUNT 260 K/mm3 (130-400); RED BLOOD COUNT 5.16 M/mm3 (4.20-5.60); REDCELL DISTRIBUTION WIDTH-CV 12.1 % (11.5-14.5)
[2018-01-14 23:00] LABS: MUCOUS Present /lpf; PH 8 (5-8); SQUAMOUS EPITHELIAL None Seen /hpf; URINE APPEARANCE Clear; URINE BACTERIA None Seen /hpf; URINE BILIRUBIN Negative (NEGATIVE); URINE BLOOD Negative (NEGATIVE); URINE COLOR Yellow; URINE GLUCOSE Negative (NEGATIVE); URINE KETONE Negative (NEGATIVE); URINE LEUKOCYTE ESTERASE Negative (NEGATIVE); URINE NITRATE Negative (NEGATIVE); URINE PROTEIN(semi-quant) 1+ (NEGATIVE); URINE RBC 0-2 /hpf; URINE UROBILINOGEN >=4.0 mg/dL (NEGATIVE)
[2018-01-14 23:08] LABS: ALANINE AMINOTRANSFERASE 23 U/L (21-72); ALBUMIN 4.2 gm/dL (3.5-5.0); ALKALINE PHOSPHATASE 66 U/L (50-136); ANION GAP 7 mmol/L (7-16); AST,SGOT 14 U/L (15-37); BILIRUBIN,TOTAL 0.3 mg/dL (0.0-1.0); BLOOD UREA NITROGEN 14 mg/dL (9-20); CALCIUM 9.1 mg/dL (8.4-10.2); CARBON DIOXIDE 31 mmol/L (22-30); CHLORIDE 101 mmol/L (98-107); CREATININE, serum 0.54 mg/dL (0.66-1.25); GLUCOSE 171 mg/dL (74-106); POTASSIUM 3.4 mmol/L (3.4-5.0); SODIUM 139 mmol/L (137-145); TOTAL PROTEIN 7.7 gm/dL (6.4-8.2)
[2018-01-14 23:12] LABS: ACETAMINOPHEN < 10 ug/mL (10-30); ALCOHOL(ethanol),MEDICAL < 10 mg/dL; SALICYLATE < 1.0 mg/dL
[2018-01-14 23:23] LABS: TRICYCLIC ANTIDEPRESS URINE NEGATIVE
[2018-01-14] MEDS ORDERED: NEURONTIN300 MG/CAP PO (23:24)
[2018-01-14] MEDS ORDERED: DESYREL 50MG50 MG PO (23:24)
[2018-01-14] MEDS ORDERED: SEROQUEL 2525 MG/TAB PO (23:24)
[2018-01-14] MEDS ORDERED: PSYCH MED IM (23:25)
[2018-01-15 09:53] VITALS: BP 109/64; PULSE 79
== END 2018-01-15 09:55 ==
LOC: COL.ER 22:24
PROVIDERS: Emergency Medicine
DX: R45.850 Homicidal ideations (principal); F17.210 Nicotine dependence, cigarettes, uncomplicated; E10.9 Type 1 diabetes mellitus without complications; Z79.4 Long term (current) use of insulin
CPT/HCPCS: J1815

== ENCOUNTER 2018-01-25 07:00 | Emergency (ER) | payer MEDICAID ==
[~2018-01-25] VITALS: Ht 175.3 cm; Wt 77.3 kg
[~2018-01-25 07:00] MED LIST changes: +DESYREL 50MG50 MG PO; +PSYCH MED IM; +SEROQUEL 2525 MG/TAB PO
[2018-01-25 07:20] LABS: COLLECTION METHOD CLEAN CATCH
[2018-01-25 07:34] LABS: MUCOUS Present /lpf; PH 5 (5-8); SQUAMOUS EPITHELIAL None Seen /hpf; TRICYCLIC ANTIDEPRESS URINE NEGATIVE; URINE APPEARANCE Hazy; URINE BACTERIA Rare /hpf; URINE BILIRUBIN Negative (NEGATIVE); URINE BLOOD Negative (NEGATIVE); URINE COLOR Amber; URINE GLUCOSE 1+ (NEGATIVE); URINE KETONE Negative (NEGATIVE); URINE LEUKOCYTE ESTERASE Negative (NEGATIVE); URINE NITRATE Negative (NEGATIVE); URINE PROTEIN(semi-quant) 1+ (NEGATIVE)
[2018-01-25 07:44] LABS: BASO # 0.1 (0.0-0.2); BASO % 0.8 % (0.0-2.0); EOS # 0.2 (0.0-0.7); EOS % 2.9 % (0-4.0); GRAN # 3.9 (1.4-6.5); GRAN % 52.3 % (42.2-75.2); HEMOGLOBIN 14.8 g/dl (13.5-18.0); LYMPH # 2.8 (1.2-3.4); LYMPH % 37.9 % (20.0-51.0); MEAN CELL VOLUME 82 fl (80.0-100.0); MEAN CORPUSCULAR HEMOGLOBIN 29 pg (27.0-31.0); MEAN CORPUSCULAR HGB CONC 35 g/dl (33.0-37.0); MEAN PLATELET VOLUME 10.2 fl (7.4-10.4); MONO # 0.4 (0.1-0.6); PLATELET COUNT 205 K/mm3 (130-400); RED BLOOD COUNT 5.13 M/mm3 (4.20-5.60)
[2018-01-25 07:55] LABS: ALANINE AMINOTRANSFERASE 25 U/L (21-72); ALBUMIN 4.1 gm/dL (3.5-5.0); ALKALINE PHOSPHATASE 59 U/L (50-136); ANION GAP 9 mmol/L (7-16); AST,SGOT 13 U/L (15-37); BILIRUBIN,TOTAL 0.5 mg/dL (0.0-1.0); BLOOD UREA NITROGEN 16 mg/dL (9-20); CALCIUM 9.2 mg/dL (8.4-10.2); CARBON DIOXIDE 29 mmol/L (22-30); CHLORIDE 103 mmol/L (98-107); CREATININE, serum 0.62 mg/dL (0.66-1.25); GLUCOSE 279 mg/dL (74-106); POTASSIUM 3.2 mmol/L (3.4-5.0); SODIUM 140 mmol/L (137-145); TOTAL PROTEIN 7.4 gm/dL (6.4-8.2)
[2018-01-25 07:56] LABS: ALCOHOL(ethanol),MEDICAL < 10 mg/dL
[2018-01-25 15:27] VITALS: BP 131/75; PULSE 96; TEMP 97.7
== END 2018-01-25 15:28 | disposition home or self-care (01) ==
LOC: COL.ER 07:00
PROVIDERS: Family Medicine
DX: F32.9 Major depressive disorder, single episode, unspecified (principal); E10.9 Type 1 diabetes mellitus without complications
CPT/HCPCS: J1815

== ENCOUNTER 2018-01-28 19:48 | Emergency (ER) | payer MEDICAID ==
[~2018-01-28] VITALS: Ht 172.7 cm; Wt 72.7 kg
[2018-01-28 20:16] LABS: COLLECTION METHOD CLEAN CATCH
[2018-01-28 20:40] LABS: MUCOUS Present /lpf; PH 5 (5-8); SQUAMOUS EPITHELIAL None Seen /hpf; URINE APPEARANCE Clear; URINE BACTERIA None Seen /hpf; URINE BILIRUBIN Negative (NEGATIVE); URINE BLOOD Negative (NEGATIVE); URINE COLOR Yellow; URINE GLUCOSE 3+ (NEGATIVE); URINE KETONE Negative (NEGATIVE); URINE LEUKOCYTE ESTERASE Negative (NEGATIVE); URINE NITRATE Negative (NEGATIVE); URINE PROTEIN(semi-quant) Negative (NEGATIVE); URINE RBC 0-2 /hpf; URINE UROBILINOGEN Negative (NEGATIVE)
[2018-01-28 20:44] LABS: BASO % 0.7 % (0.0-2.0); EOS # 0.1 (0.0-0.7); EOS % 2.2 % (0-4.0); GRAN # 3.4 (1.4-6.5); GRAN % 62.4 % (42.2-75.2); HEMATOCRIT 40.7 % (42.0-52.0); HEMOGLOBIN 14.2 g/dl (13.5-18.0); LYMPH # 1.3 (1.2-3.4); LYMPH % 23.8 % (20.0-51.0); MEAN CELL VOLUME 83 fl (80.0-100.0); MEAN CORPUSCULAR HEMOGLOBIN 29 pg (27.0-31.0); MEAN CORPUSCULAR HGB CONC 35 g/dl (33.0-37.0); MEAN PLATELET VOLUME 10.2 fl (7.4-10.4); MONO # 0.6 (0.1-0.6); MONO % 10.3 % (1.7-9.3); PLATELET COUNT 208 K/mm3 (130-400); RED BLOOD COUNT 4.93 M/mm3 (4.20-5.60); REDCELL DISTRIBUTION WIDTH-CV 12.1 % (11.5-14.5)
[2018-01-28 20:44] LABS: TRICYCLIC ANTIDEPRESS URINE NEGATIVE
[2018-01-28 20:52] LABS: ALANINE AMINOTRANSFERASE 27 U/L (21-72); ALBUMIN 3.6 gm/dL (3.5-5.0); ALKALINE PHOSPHATASE 76 U/L (50-136); ANION GAP 6 mmol/L (7-16); AST,SGOT 13 U/L (15-37); BILIRUBIN,TOTAL 0.3 mg/dL (0.0-1.0); BLOOD UREA NITROGEN 9 mg/dL (9-20); CALCIUM 8.9 mg/dL (8.4-10.2); CARBON DIOXIDE 29 mmol/L (22-30); CHLORIDE 106 mmol/L (98-107); GLUCOSE 267 mg/dL (74-106); SODIUM 141 mmol/L (137-145); TOTAL PROTEIN 6.5 gm/dL (6.4-8.2)
[2018-01-28 20:56] LABS: ACETAMINOPHEN < 10 ug/mL (10-30); ACETONE,SERUM NEGATIVE; ALCOHOL(ethanol),MEDICAL < 10 mg/dL; SALICYLATE < 1.0 mg/dL
[2018-01-29 17:27] VITALS: BP 124/83; PULSE 103; TEMP 98.3
== END 2018-01-29 17:29 | disposition home or self-care (01) ==
LOC: COL.ER 19:48
PROVIDERS: Emergency Medicine
DX: R45.851 Suicidal ideations (principal); F32.9 Major depressive disorder, single episode, unspecified; E10.9 Type 1 diabetes mellitus without complications; F17.210 Nicotine dependence, cigarettes, uncomplicated; F15.10 Other stimulant abuse, uncomplicated
CPT/HCPCS: J1815